=== PATIENT | female | born 1985 | race Hispanic/Latino ===

== ENCOUNTER 2022-03-14 13:31 | Outpatient (CLI) | payer BC | END 2022-03-14 13:32 | disposition home or self-care (01) | LOC: CSHMRI 13:31 | PROVIDERS: ATTEND Nurse Practitioner Family | DX: R42 Dizziness and giddiness (principal); R53.1 Weakness; R26.89 Other abnormalities of gait and mobility; R51.9 Headache, unspecified | CPT/HCPCS: 70553 ==